=== PATIENT | female | born 1970 ===

== ENCOUNTER 2017-12-26 14:33 | Observation (INO) | payer MEDICAID ==
--- NOTE | 2017-12-26 15:35 | RAD ---
HISTORY: admission COMPARISON: Chest radiograph dated 03/05/2014. FINDINGS: LUNGS: No active pulmonary disease. PLEURA: No significant pleural effusion identified, no pneumothorax apparent. CARDIOVASCULAR: Atherosclerotic aortic calcifications. Cardiomediastinal stably prominent. OSSEOUS STRUCTURES: Unchanged. VISUALIZED UPPER ABDOMEN: Normal. OTHER FINDINGS: None. IMPRESSION: No active disease.
--- NOTE | 2017-12-26 15:56 | ED PDOC ---
HPI: General Adult Time Seen by Provider: 12/26/17 14:55 Chief Complaint (Nursing): Abnormal Labs Chief Complaint (Provider): abnormal labs History Per: Patient History/Exam Limitations: no limitations Onset/Duration Of Symptoms: Days (x1) Additional Complaint(s): 47 year old female, referred to the emergency department by PMD, for hospital admission evaluation following anemia and iron deficiency noted on recent bloodwork today. She denies any further medical complaints except for lightheadedness. Patient states PMD told her that iron was not being absorbed correctly. She also reports having history of blood transfusion in the past. PMD: Raimundo Loera MD Past Medical History Reviewed: Historical Data, Nursing Documentation, Vital Signs Vital Signs: Last Vital Signs Temp 98 F 12/26/17 15:05 Pulse 70 12/26/17 15:05 Resp 18 12/26/17 15:05 BP 103/67 12/26/17 15:05 Pulse Ox 100 12/26/17 16:19 - Medical History PMH: Anemia, Anxiety, Asthma, Bipolar Disorder, Depression, Seizures Denies: HIV, Chronic Kidney Disease, Sexually Transmitted Disease - Surgical History Surgical History: Cholecystectomy, Tonsillectomy - Family History Family History: States: Unknown Family Hx, Hypertension (?) - Immunization History Hx Tetanus Toxoid Vaccination: No Hx Influenza Vaccination: No Hx Pneumococcal Vaccination: No - Home Medications Home Medications: Ambulatory Orders Medication Instructions Recorded Acetaminophen/Butalbital/Caf 1 tab PO Q6 PRN 12/26/17 [Fioricet] Albuterol 0.083% [Albuterol 0.083% 3 ml IH Q6 PRN 12/26/17 Inhal Romana (2.5 mg/3 ml) UD] Albuterol/Ipratropium [Combivent 1 puff IH Q6 PRN 12/26/17 Respimat] Alprazolam [Xanax] 0.5 mg PO Q12 12/26/17 Budesonide/Formoterol Fumarate 2 puff IH Q12 12/26/17 [Symbicort 160-4.5 Mcg Inhaler] Divalproex [Depakote ER] 500 mg PO Q8 12/26/17 Fluoxetine HCl [Prozac] 40 mg PO QAM 12/26/17 Gabapentin [Neurontin] 100 mg PO Q12 12/26/17 Ibuprofen [Motrin Tab] 600 mg PO Q12 PRN 12/26/17 Pantoprazole Sodium [Protonix] 40 mg PO DAILY PRN 12/26/17 Pramipexole [Mirapex] 0.5 mg PO HS 12/26/17 Sertraline [Zoloft] 50 mg PO Q8 12/26/17 traZODone [Desyrel] 75 mg PO HS 12/26/17 - Allergies Allergies/Adverse Reactions: Allergies Allergy/AdvReac Type Severity Reaction Status Date / Time iodine Allergy RASH Verified 12/26/17 15:05 lamotrigine [From Lamictal] Allergy RASH Verified 12/26/17 15:05 Review of Systems ROS Statement: Except As Marked, All Systems Reviewed And Found Negative Neurological: Positive for: Headache (lightheaded) Physical Exam - Reviewed Nursing Documentation Reviewed: Yes Vital Signs Reviewed: Yes - Physical Exam Appears: Positive for: Well, Non-toxic, No Acute Distress Head Exam: Positive for: ATRAUMATIC, NORMAL INSPECTION, NORMOCEPHALIC Skin: Positive for: Normal Color Eye Exam: Positive for: Normal appearance ENT: Positive for: Normal ENT Inspection Neck: Positive for: Normal, Supple Cardiovascular/Chest: Positive for: Regular Rate, Rhythm Respiratory: Positive for: Normal Breath Sounds. Negative for: Wheezing, Respiratory Distress Gastrointestinal/Abdominal: Positive for: Normal Exam, Soft. Negative for: Tenderness Extremity: Positive for: Normal ROM. Negative for: Pedal Edema (bilateral) Neurologic/Psych: Positive for: Alert (x3), Oriented. Negative for: Motor/ Sensory Deficits - Laboratory Results Result Diagrams: 12/26/17 15:50 12/26/17 15:50 - ECG O2 Sat by Pulse Oximetry: 100 (RA) Pulse Ox Interpretation: Normal Medical Decision Making Medical Decision Making: Initial Impression: Anemia Initial Plan: * Packed cells leukoreduced * Type and screen * EKG * CMP * CBC * PTT * PT * CXR * Urine culture * UA Discussed with Dr. Loera for admission. 2 units ordered. Scribe Attestation: Documented by Letty Jefferson, acting as a scribe for Jacinta Jiang PA-C. Provider Scribe Attestation: All medical record entries made by the Scribe were at my direction and personally dictated by me. I have reviewed the chart and agree that the record accurately reflects my personal performance of the history, physical exam, medical decision making, and the department course for this patient. I have also personally directed, reviewed, and agree with the discharge instructions and disposition. Disposition - Clinical Impression Clinical Impression: Anemia - Patient ED Disposition Is Patient to be Admitted: Yes - Disposition Disposition Time: 16:27 Condition: STABLE Forms: [employer] (Azeri)
[2017-12-26 16:05] LABS: ALB/GLOB RATIO 1.1 (1.0-2.1); ALBUMIN 3.4 g/dL (3.5-5.0); ALT/SGPT 28 U/L (9-52); AST/SGOT 21 U/L (14-36); BLOOD UREA NITROGEN 8 mg/dl (7-17); CALCIUM 8.9 mg/dL (8.4-10.2); GFR AFRICAN-AMERICAN > 60; GFR NON-AFRICAN AMERICAN > 60
[2017-12-26 16:10] LABS: BASO % 0.4 % (0.0-2.0); EOS # 0.1 K/uL (0.0-0.7); EOS % 1.7 % (0.0-4.0); LYMPH % 37.2 % (20.0-40.0); MEAN CELL VOLUME 64.7 fl (81.0-99.0); MEAN CORPUSCULAR HEMOGLOBIN 18.7 pg (27.0-31.0); MEAN PLATELET VOLUME 9.5 fl (7.2-11.7); MONO # 0.3 K/uL (0.0-0.8); MONO % 4.9 % (0.0-10.0); NEUT % 55.8 % (50.0-75.0); NRBC % 0.3 % (0.0-0.0); RBC 3.45 Mil/uL (3.80-5.20); RED CELL DISTRIBUTION WIDTH 20.8 % (11.5-14.5)
[2017-12-26 16:14] LABS: HEMOGLOBIN 6.5 g/dL (12.0-16.0); WHITE BLOOD COUNT 5.4 K/uL (4.8-10.8)
[2017-12-26 16:36] LABS: INR 1.1 (0.9-1.2); PARTIAL THROMBOPLASTIN TIME 26.2 Seconds (25.6-37.1); PROTHROMBIN TIME 11.7 Seconds (9.8-13.1)
[2017-12-26 17:39] LABS: SQUAMOUS EPITHIAL 23 /hpf (0-5); URINE AMORPHOUS SEDIMENT RARE /ul (<OCC); URINE BILIRUBIN NEGATIVE (NEGATIVE); URINE BLOOD NEGATIVE (NEGATIVE); URINE CLARITY CLOUDY (Clear); URINE COLOR YELLOW (YELLOW); URINE GLUCOSE (UA) NEG (Normal); URINE LEUKOCYTE ESTERASE NEG Leu/uL (Negative); URINE PROTEIN NEGATIVE (NEGATIVE); URINE UROBILINOGEN 0.2-1.0 mg/dL (0.2-1.0)
[2017-12-26] MEDS ORDERED: Sodium Chloride 0.9% 1,000 ML IV STA (18:23)
[2017-12-26] MEDS ORDERED: Apap-Butalbital-Caffeine 325-50-40mg Tab PO PRN (19:56)
[2017-12-26] MEDS ORDERED: Albuterol 0.083% Inhal Sol (2.5 mg/3 mL) UD IH PRN (19:56)
[2017-12-27] MEDS: Divalproex 500 mg ER (ONCE DAILY formulation) PO SCH ×2 (02:06→08:33)
[2017-12-27 08:01] VITALS: RESP 20
[2017-12-27 08:10] LABS: BASO % 0.5 % (0.0-2.0); EOS # 0.2 K/uL (0.0-0.7); EOS % 2.7 % (0.0-4.0); HEMOGLOBIN 8.5 g/dL (12.0-16.0); LYMPH % 32.3 % (20.0-40.0); MEAN CELL VOLUME 68.3 fl (81.0-99.0); MEAN CORPUSCULAR HEMOGLOBIN 21.5 pg (27.0-31.0); MEAN CORPUSCULAR HGB CONC 31.5 g/dL (33.0-37.0); MEAN PLATELET VOLUME 9.5 fl (7.2-11.7); MONO # 0.4 K/uL (0.0-0.8); MONO % 6.3 % (0.0-10.0); NEUT # 3.6 K/uL (1.8-7.0); NEUT % 58.2 % (50.0-75.0); NRBC % 0.3 % (0.0-0.0); RBC 3.93 Mil/uL (3.80-5.20); RED CELL DISTRIBUTION WIDTH 24.4 % (11.5-14.5); WHITE BLOOD COUNT 6.1 K/uL (4.8-10.8)
[2017-12-27] MEDS ORDERED: Pantoprazole 40 mg EC Tab PO PRN (09:00)
[2017-12-27 09:26] LABS: ALT/SGPT 25 U/L (9-52); AST/SGOT 21 U/L (14-36); BLOOD UREA NITROGEN 4 mg/dl (7-17); CALCIUM 8.6 mg/dL (8.4-10.2); GFR AFRICAN-AMERICAN > 60; GFR NON-AFRICAN AMERICAN > 60
--- NOTE | 2017-12-27 10:48 | HP ---
CHIEF COMPLAINT: Found severely anemic in office. HISTORY OF PRESENT ILLNESS: This is a 47-year-old female with multiple medical problems including diabetes, anxiety, depression, anemia, morbid obesity, status post gastrectomy, and bariatric surgery, who was found to have hemoglobin of 7 in office and the patient was advised to go to the hospital. The patient was refusing for 2 days, but after that the patient finally went to the hospital and was admitted for further management. REVIEW OF SYSTEMS: Positive for generalized malaise, weakness, fatigue, tired, and lethargic. Review of systems otherwise is negative for headache, dizziness, syncope, loss of consciousness, chest pain, shortness of breath, nausea, vomiting, diarrhea, constipation or any new joint or extremity pain. Review of systems of all other organ system is unremarkable. PAST MEDICAL HISTORY: Significant for anemia, diabetes, hypertension, morbid obesity, depression, vitamin B12 deficiency, and iron deficiency anemia. PAST SURGICAL HISTORY: Remarkable for bariatric surgery. PERSONAL HISTORY: The patient is currently nonsmoker, nondrinker. No substance abuse. MEDICATIONS: The patient is on multiple medications, which is as per reconciliation sheet, which was reviewed and ordered. ALLERGIES: THE PATIENT IS NOT ALLERGIC TO ANY MEDICATIONS. FAMILY HISTORY: Noncontributory. PHYSICAL EXAMINATION: GENERAL: A well-built, well-nourished 47-year-old female, in no acute distress. VITAL SIGNS: Temperature afebrile, pulse 88, respirations 18, and blood pressure . No orthostatic changes. HEENT: The patient's conjunctivae are pale. No JVD. No thyromegaly. No lymphadenopathy. No nystagmus. Normocephalic and atraumatic skull. HEART: S1 and S2. Normal and regular. No significant murmur, gallop or rub is heard. LUNGS: Shows good bilateral air exchange. No rales or rhonchi. ABDOMEN: Soft and nontender. No organomegaly. No fluids. Bowel sounds are present and normal. RECTAL: Stool for occult blood is negative. EXTREMITIES: No edema. No calf swelling. No tenderness. No acute ischemia. [employer]: Essentially unchanged. There is no sign of any acute gross focal motor or sensory neurological deficits. DIAGNOSTIC DATA: Available diagnostic data reviewed. Hemoglobin was 6.5. Repeat hemoglobin after 2 units of blood transfusion is pending. All other labs are acceptable and consistent with the patient's initial laboratory findings. ADMITTING IMPRESSION: Severe anemia, diabetes, depression, morbid obesity, status post gastrectomy, and status post bariatric surgery. PLAN: As ordered. Case and plan discussed with the patient and nursing staff. Raimundo Loera MD
[2017-12-27 12:13] VITALS: BP 107/73; PULSE 73; TEMP 98.2; O2SAT 99
--- NOTE | 2017-12-27 12:36 | CARD ---
APPROVED REPORT EKG Measurement Heart [id number] <Conclusion> Normal sinus rhythm Normal ECG
[2017-12-27] MEDS ORDERED: Enoxaparin 40 mg Syringe SC SCH (13:45)
== END 2017-12-27 14:28 | disposition home or self-care (01) ==
LOC: H.ER 14:33 → H.ERHOLD 16:31 → H.TEL 19:43
PROVIDERS: ADMIT Internal Medicine; ATTEND Internal Medicine
DX: D50.9 Iron deficiency anemia, unspecified (principal); F41.8 Other specified anxiety disorders; J45.909 Unspecified asthma, uncomplicated; G40.909 Epilepsy, unspecified, not intractable, without status epilepticus; Z90.49 Acquired absence of other specified parts of digestive tract; E66.01 Morbid (severe) obesity due to excess calories; E53.8 Deficiency of other specified B group vitamins; Z98.84 Bariatric surgery status; Z90.3 Acquired absence of stomach [part of]; Z79.51 Long term (current) use of inhaled steroids; I10 Essential (primary) hypertension
CPT/HCPCS: 36415; 36430; 71045; 80053; 81003; 81025; 85025; 85610; 85730; 86850; 86900; 86920; 87086; 93005; 96360; 99285; G0378; J7040; P9051

== ENCOUNTER 2018-10-04 21:56 | Emergency (ER) | payer MEDICAID ==
[2018-10-04 22:45] VITALS: BMI 24.9
--- NOTE | 2018-10-05 00:02 | ED PDOC ---
HPI: Seizure Time Seen by Provider: 10/04/18 22:51 Chief Complaint (Nursing): Abnormal Labs Chief Complaint (Provider): Anemia History Per: Patient History/Exam Limitations: no limitations Recent Seizure Activity Began: Just Before Arrival Number Of Seizures: One Additional Complaint(s): 48 y/o female with history of anemia and past transfusion presents to the ED complaining of body aches and weakness for about a week. Patient was seen by her PMD x4 days ago on Friday and at that time had labs jacob. Patient was called today by her doctor and was told to go the ER for further evaluation of severe anemia. While waiting in waiting room patient suddenly had seizure like activity. She reports that she has recurrent breakthrough seizures in the past and despite taking medications she continues to have it. Patient states she no longer sees her neurologist because she has "gotten used to them." PMD: Raimundo Loera Past Medical History Reviewed: Historical Data, Nursing Documentation, Vital Signs Vital Signs: Last Vital Signs Temp 98.4 F 10/04/18 22:45 Pulse 81 10/04/18 22:45 Resp 18 10/04/18 22:45 BP 104/59 L 10/04/18 22:45 Pulse Ox 100 10/04/18 22:45 - Medical History PMH: Anemia, Anxiety, Asthma, Bipolar Disorder, Depression, HTN, Migraine, Seizures Denies: HIV, Chronic Kidney Disease, Sexually Transmitted Disease Other PMH: Restless Leg Syndrome - Surgical History Surgical History: Cholecystectomy, Tonsillectomy, Other surgeries: gastric bypass - Family History Family History: States: Unknown Family Hx, Hypertension (?) - Social History Current smoker - smoking cessation education provided: Yes Alcohol: None Drugs: Denies - Immunization History Hx Tetanus Toxoid Vaccination: No Hx Influenza Vaccination: No Hx Pneumococcal Vaccination: No - Home Medications Home Medications: Ambulatory Orders Medication Instructions Recorded Acetaminophen/Butalbital/Caf 1 tab PO Q6 PRN 12/26/17 [Fioricet] Albuterol 0.083% [Albuterol 0.083% 3 ml IH Q6 PRN 12/26/17 Inhal Romana (2.5 mg/3 ml) UD] Albuterol/Ipratropium [Combivent 1 puff IH Q6 PRN 12/26/17 Respimat] Alprazolam [Xanax] 0.5 mg PO Q12 12/26/17 Budesonide/Formoterol Fumarate 2 puff IH Q12 12/26/17 [Symbicort 160-4.5 Mcg Inhaler] Divalproex [Depakote ER] 500 mg PO Q8 12/26/17 Fluoxetine HCl [Prozac] 40 mg PO QAM 12/26/17 Gabapentin [Neurontin] 100 mg PO Q12 12/26/17 Ibuprofen [Motrin Tab] 600 mg PO Q12 PRN 12/26/17 Pantoprazole Sodium [Protonix] 40 mg PO DAILY PRN 12/26/17 Pramipexole [Mirapex] 0.5 mg PO HS 12/26/17 Sertraline [Zoloft] 50 mg PO Q8 12/26/17 traZODone [Desyrel] 75 mg PO HS 12/26/17 - Allergies Allergies/Adverse Reactions: Allergies Allergy/AdvReac Type Severity Reaction Status Date / Time iodine Allergy RASH Verified 10/04/18 22:45 lamotrigine [From Lamictal] Allergy RASH Verified 10/04/18 22:45 Review of Systems ROS Statement: Except As Marked, All Systems Reviewed And Found Negative Constitutional: Positive for: Weakness, Malaise (body aches), Other (Fatigue) Neurological: Positive for: Weakness, Seizures Physical Exam - Reviewed Nursing Documentation Reviewed: Yes Vital Signs Reviewed: Yes - Physical Exam Appears: Positive for: No Acute Distress Head Exam: Positive for: ATRAUMATIC, NORMOCEPHALIC Skin: Positive for: Warm, Dry, Pallor Eye Exam: Positive for: EOMI, PERRL ENT: Positive for: Other (tacky mucous membranes) Neck: Positive for: Painless ROM, Supple Cardiovascular/Chest: Positive for: Regular Rate, Rhythm. Negative for: Murmur Respiratory: Positive for: Normal Breath Sounds. Negative for: Wheezing Gastrointestinal/Abdominal: Positive for: Soft. Negative for: Tenderness Back: Positive for: Normal Inspection. Negative for: Muscle Spasm Extremity: Positive for: Normal ROM. Negative for: Deformity Lymphatic: Negative for: Adenopathy Neurologic/Psych: Positive for: Alert, Oriented, Mood/Affect (sleepy but easily arousable). Negative for: Motor/Sensory Deficits - Laboratory Results Result Diagrams: 10/04/18 23:20 10/04/18 23:35 - ECG ECG: Positive for: Interpreted By Me ECG Rhythm: Positive for: Normal QRS, Normal ST Segment, Sinus Rhythm O2 Sat by Pulse Oximetry: 100 (RA) Pulse Ox Interpretation: Normal - Radiology X-Ray: Interpreted by Me X-Ray Interpretation: No Acute Disease Medical Decision Making Medical Decision Making: Time: 22:55 Initial Impression: anemia and recurrent seizures. Will hospitalize pending ER workup. Initial Plan: * Type and screen * EKG * Alcohol serum * CMP * Creatinine * Drug screen * Lactic acid * Magnesium * Phosphorous * Valproic acid * ED Urine * PTT * Prothrombin time * CXR Labs demonstrate marked anemia Transfusion ordered DW Dr Evaristo DELGADO pt findings and plan of care. Risks/benefits of transfusion d/w patient. Scribe Attestation: Documented by David Lowry acting as a scribe for Milady Hein MD. Provider Scribe Attestation: All medical record entries made by the Scribe were at my direction and personally dictated by me. I have reviewed the chart and agree that the record accurately reflects my personal performance of the history, physical exam, medical decision making, and the department course for this patient. I have also personally directed, reviewed, and agree with the discharge instructions and disposition. Disposition - Clinical Impression Clinical Impression: Anemia, Seizure disorder - Disposition Disposition Time: 23:00 Condition: FAIR Forms: [facility] (Hungarian) - Pt Status Changed To: Hospital Disposition Of: Inpatient - Admit Certification Admit to Inpatient:: After my assessment, the patient will require hospitalization for at least two midnights. This is because of the severity of symptoms shown, intensity of services needed, and/or the medical risk in this patient being treated as an outpatient. - POA Present On Arrival: None
[2018-10-05 00:03] LABS: BASO # 0.1 K/uL (0.0-0.2); BASO % 0.7 % (0.0-2.0); EOS # 0.1 K/uL (0.0-0.7); EOS % 1.5 % (0.0-4.0); HEMOGLOBIN 6.9 g/dL (12.0-16.0); LYMPH # 2.8 K/uL (1.0-4.3); LYMPH % 38.4 % (20.0-40.0); MEAN CELL VOLUME 69.4 fl (81.0-99.0); MEAN CORPUSCULAR HEMOGLOBIN 20.3 pg (27.0-31.0); MEAN CORPUSCULAR HGB CONC 29.2 g/dL (33.0-37.0); MEAN PLATELET VOLUME 9.2 fl (7.2-11.7); MONO # 0.4 K/uL (0.0-0.8); MONO % 5.9 % (0.0-10.0); NEUT % 53.5 % (50.0-75.0); NRBC % 0.1 % (0.0-0.0); RBC 3.41 Mil/uL (3.80-5.20); RED CELL DISTRIBUTION WIDTH 21.4 % (11.5-14.5); WHITE BLOOD COUNT 7.4 K/uL (4.8-10.8)
[2018-10-05 00:13] LABS: ALB/GLOB RATIO 1.2 (1.0-2.1); ALBUMIN 3.9 g/dL (3.5-5.0); ALT/SGPT 38 U/L (9-52); AST/SGOT 52 U/L (14-36); BLOOD UREA NITROGEN 18 mg/dl (7-17); CALCIUM 9.2 mg/dL (8.4-10.2); GFR NON-AFRICAN AMERICAN > 60
[2018-10-05 00:16] LABS: PARTIAL THROMBOPLASTIN TIME 31.7 Seconds (25.6-37.1)
[2018-10-05] MEDS ORDERED: Patient's Own Med (Albuterol/Ipratropium [Combivent Respimat] 1 PUFF) IH PRN ×2 (00:45→14:22)
[2018-10-05] MEDS ORDERED: Pantoprazole 40 mg EC Tab PO PRN (00:45)
[2018-10-05] MEDS ORDERED: Apap-Butalbital-Caffeine 325-50-40mg Tab PO PRN (00:45)
[2018-10-05] MEDS ORDERED: Albuterol 0.083% Inhal Sol (2.5 mg/3 mL) UD IH PRN (00:45)
[2018-10-05 00:47] LABS: PHENCYCLIDINE, UR NEGATIVE (NEGATIVE)
[2018-10-05 00:57] LABS: BARBITURATES, UR POSITIVE (NEGATIVE); BENZODIAZEPINES, UR POSITIVE (NEGATIVE); OPIATES, UR NEGATIVE (NEGATIVE)
[2018-10-05] MEDS: Divalproex 500 mg ER (ONCE DAILY formulation) PO SCH ×2 (01:58→11:04)
[2018-10-05 02:24] LABS: IRON < 10 ug/dL (37-170)
[2018-10-05 02:47] LABS: % IRON SATURATION 9 % (20-55); TOTAL IRON BINDING CAPACITY 467 ug/dL (250-450)
--- NOTE | 2018-10-05 08:08 | RAD ---
Date of service: 10/04/2018 HISTORY: anemia and seizure COMPARISON: Frontal chest radiograph 12/26/2017. FINDINGS: LUNGS: No active pulmonary disease. PLEURA: No significant pleural effusion identified, no pneumothorax apparent. CARDIOVASCULAR: No aortic atherosclerotic calcification present. Normal cardiac size. No pulmonary vascular congestion. OSSEOUS STRUCTURES: No significant abnormalities. VISUALIZED UPPER ABDOMEN: Normal. OTHER FINDINGS: None. IMPRESSION: No active disease.
[2018-10-05] MEDS ORDERED: Patient's Own Med (Budesonide/Formoterol Fumarate [Symbicort 160-4.5 Mcg Inhaler] 2 PUFF) IH SCH (09:00)
[2018-10-05] MEDS ORDERED: Fluticasone-Salmeterol 250-50mcg Diskus IH SCH (09:00)
[2018-10-05 10:43] VITALS: TEMP 97.7
--- NOTE | 2018-10-05 10:50 | CARD ---
APPROVED REPORT Date of service: 10/04/2018 EKG Measurement Heart [id number] <Conclusion> Normal sinus rhythm Normal ECG
[2018-10-05 11:47] LABS: MEAN CELL VOLUME 72.7 fl (81.0-99.0); MEAN CORPUSCULAR HEMOGLOBIN 22.9 pg (27.0-31.0); MEAN CORPUSCULAR HGB CONC 31.5 g/dL (33.0-37.0); RBC 3.91 Mil/uL (3.80-5.20); RED CELL DISTRIBUTION WIDTH 23.4 % (11.5-14.5); WHITE BLOOD COUNT 8.5 K/uL (4.8-10.8)
[2018-10-05 12:21] VITALS: BP 108/60; PULSE 68; RESP 17; O2SAT 99
--- NOTE | 2018-10-05 12:58 | ED PDOC ---
ED Additional Note - Date & Time of Evaluation Date of Evaluation: 10/05/18 Time of Evaluation: 12:55 - Physician Additional Note Physician Additional Note: [id number] Provider informed by RN that patient does not wish to stay and is electing to leave AMA. Discussed at length with patient that choosing to leave AMA may result in permanent bodily harm or . Also discussed with patient that without further evaluation and monitoring there may be unforeseen circumstances and/or deterioration causing permanent bodily harm or as a result of their choice. The patient verbalized these risks back to the physician in laymans terms. The patient is alert, oriented, and shows the mental capacity to make clear decisions regarding the patients health care at this time. The patient continues to wish to leave against medical advice. The patient has been advised that they should return to the ED immediately if they change their mind at any time, or if their condition begins to change or worsen in any way. Dr. Loera informed of patient's wish to leave AMA. Patient requesting repeat bloodwork results. [id number] When provider went to give the patient her bloodwork results, patient had left the ER. Scribe Attestation: Documented by Caro Enrique acting as a scribe for Luis Shaver MD Provider Attestation: All medical record entries made by the Scribe were at my direction and personally dictated by me. I have reviewed the chart and agree that the record accurately reflects my personal performance of the history, physical exam, medical decision making, and the department course for this patient. I have also personally directed, reviewed, and agree with the discharge instructions and disposition.
--- NOTE | 2018-10-05 21:29 | HP ---
CHIEF COMPLAINT: Generalized weakness. HISTORY OF PRESENT ILLNESS: This is a 48-year-old female, known case of anemia, vitamin B12 deficiency, morbid obesity, status post gastric surgery, seizure disorder, anxiety, depression who was seen in the office for generalized weakness, and blood test was done which showed hemoglobin of 7. The patient was called and was transferred to the emergency room for management. During emergency room evaluation, blood count was found to be 6.9, and the patient was admitted for further management. REVIEW OF SYSTEMS: Positive for generalized weakness, malaise, fatigue, tiredness. Review of systems otherwise is negative for headache, dizziness, syncope, loss of consciousness, chest pain, shortness of breath, nausea, vomiting, diarrhea or constipation. Review of systems of all other organ system is unremarkable. PAST MEDICAL HISTORY: Significant for hypertension, seizure disorder, anxiety disorder, vitamin B12 deficiency, morbid obesity, status post gastric surgery. PAST SURGICAL HISTORY: Remarkable for gastric bypass. PERSONAL HISTORY: The patient is currently nonsmoker, nondrinker. No substance abuse. MEDICATIONS: The patient is on multiple medications which is as per reconciliation sheet which are reviewed and ordered. ALLERGIES: THE PATIENT IS NOT ALLERGIC TO ANY MEDICATION. FAMILY HISTORY: Noncontributory. PHYSICAL EXAMINATION: GENERAL: A well-built, well-nourished 48-year-old female, in no acute distress. VITAL SIGNS: Temperature afebrile, pulse 80, respirations 18, blood pressure 136/72. HEENT: Pupils reacting to light. Normocephalic and atraumatic skull. NECK: No JVD. No thyromegaly. No lymphadenopathy. No nystagmus. HEART: S1 and S2 normal and regular. LUNGS: Good bilateral air exchange. ABDOMEN: Soft and nontender. No organomegaly. No fluid. Bowel sounds are present and normal. EXTREMITIES: No edema. No calf swelling. No tenderness. No acute ischemia. CENTRAL NERVOUS SYSTEM: Essentially unchanged. There is no sign of any acute gross focal motor or sensory neurological deficit. DIAGNOSTIC DATA: Available diagnostic data reviewed. Hemoglobin as mentioned earlier was 6.9. Other labs are acceptable. ADMITTING IMPRESSION: Severe anemia, vitamin B12 deficiency, iron deficiency, status post gastric bypass surgery, morbid obesity, seizure disorder. PLAN: As ordered. Case and plan discussed with the patient. Raimundo Loera MD
[2018-10-05 22:05] LABS: FOLATE 4.8 ng/mL
== END 2018-10-05 13:00 | disposition left against medical advice (07) ==
LOC: H.ER 21:56 → H.ERHOLD 10-05 00:16 → UNDOADMIN 10-05 00:16 → UNDODISIN 10-05 13:00
DX: D64.9 Anemia, unspecified (principal); E53.8 Deficiency of other specified B group vitamins; Z98.84 Bariatric surgery status; E66.01 Morbid (severe) obesity due to excess calories; Z86.59 Personal history of other mental and behavioral disorders; G40.909 Epilepsy, unspecified, not intractable, without status epilepticus; I10 Essential (primary) hypertension
CPT/HCPCS: 36430; 71045; 80053; 80320; 80324; 80345; 80346; 80349; 80353; 80358; 80361; 81025; 82550; 82607; 82668; 82728; 82746; 82948; 83010; 83540; 83550; 83605; 83735; 83992; 84100; 85025; 85027; 85044; 85610; 85730; 86850; 86900; 86920; 93005; 99285; P9051